=== PATIENT | female | born 2000 | race Caucasian/White ===

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

== ENCOUNTER 2019-02-17 22:01 | Emergency (ER) | payer OTHER ==
[2019-02-17] MEDS ORDERED: Ondansetron 4 MG/2 ML SDV IVPUSH ONE (23:03)
[2019-02-17] MEDS ORDERED: Ketorolac 30 MG/ML SDV IVPUSH ONE (23:03)
[2019-02-17] MEDS ORDERED: Sodium Chloride 0.9% 1,000 ML IV ONE (23:03)
--- NOTE | 2019-02-17 23:05 | EDM.PDOC ---
ED HPI GENERAL MEDICAL PROBLEM - General Chief Complaint: Abdominal Pain Stated Complaint: ABDOMINAL PAIN Time Seen by Provider: 02/17/19 23:04 Source of Information: Reports: Patient - History of Present Illness INITIAL COMMENTS - FREE TEXT/NARRATIVE: HISTORY AND PHYSICAL: History of present illness: [Presents with low abdominal pain subjective fever nausea vomiting diarrhea pain is 5 out of 10 nonradiating right left lower quadrant]-currently menstruating Patient pain resolved with Toradol Review of systems: As per history of present illness and below otherwise all systems reviewed and negative. Past medical history: As per history of present illness and as reviewed below otherwise noncontributory. Surgical history: As per history of present illness and as reviewed below otherwise noncontributory. Social history: No reported history of drug or alcohol abuse. Family history: As per history of present illness and as reviewed below otherwise noncontributory. Physical exam: HEENT: Atraumatic, normocephalic, pupils reactive, negative for conjunctival pallor or scleral icterus, mucous membranes moist, throat clear, neck supple, nontender, trachea midline. Lungs: Clear to auscultation, breath sounds equal bilaterally, chest nontender. Heart: S1S2, regular, negative for clicks, rubs, or JVD. Abdomen: Soft, nondistended, tender on deep palpationon the left lower quadrant no guarding or rebound. Negative for masses or hepatosplenomegaly. Negative for costovertebral tenderness. Pelvis: Stable nontender. Genitourinary: Deferred. Rectal: Deferred. Extremities: Atraumatic, negative for cords or calf pain. Neurovascular unremarkable. Neuro: Awake, alert, oriented. Cranial nerves II through XII unremarkable. Cerebellum unremarkable. Motor and sensory unremarkable throughout. Exam nonfocal. Diagnostics: [CBC CMP lipase UA hCG CT abdomen pelvis with contrast ] Therapeutics:Normalline Toradol Zofran Toradol Return if symptoms persist or worsen ] Impression: [Abdominal pain] Definitive disposition and diagnosis as appropriate pending reevaluation and review of above. abdomen Pain Score (Numeric/FACES): 7 - Related Data Allergies Allergy/AdvReac Type Severity Reaction Status Date / Time banana Allergy Mouth Sores Verified 02/17/19 22:55 Home Meds: Home Meds . [No Known Home Meds] 11/26/18 [History] Past Medical History - Past Health History Medical/Surgical History: Denies Medical/Surgical History Psychiatric History: Reports: Anxiety, Depression, PTSD Social & Family History - Family History Family Medical History: Noncontributory - Tobacco Use Smoking Status *Q: Current Every Day Smoker Years of Tobacco use: 1 Packs/Tins Daily: 0.5 - Caffeine Use Caffeine Use: Reports: Coffee, Energy Drinks, Soda - Recreational Drug Use Recreational Drug Use: Yes Recreational Drug Type: Reports: Marijuana/Hashish Recreational Drug Use Frequency: Weekly Recreational Drug Last Use: "4 days ago" ED ROS GENERAL - Review of Systems Review Of Systems: See Below ED EXAM, GENERAL - Physical Exam Exam: See Below Course - Vital Signs Last Recorded V/S: Last Vital Signs Temp 96.6 F 02/17/19 22:50 Pulse 88 02/17/19 22:50 Resp 18 02/17/19 22:50 BP 138/93 H 02/17/19 22:50 Pulse Ox 97 02/17/19 22:50 - Orders/Labs/Meds Labs: Laboratory Tests 02/17/19 02/17/19 02/17/19 Range/Units 23:03 23:03 23:16 WBC 12.97 H (4.0-11.0) K/uL RBC 5.14 (4.30-5.90) M/uL Hgb 13.1 (12.0-16.0) g/dL Hct 41.6 (36.0-46.0) % MCV 80.9 (80.0-98.0) fL MCH 25.5 L (27.0-32.0) pg MCHC 31.5 (31.0-37.0) g/dL RDW Std Deviation 43.6 (28.0-62.0) fl RDW Coeff of Kapil 15 (11.0-15.0) % Plt Count 409 H (150-400) K/uL MPV 10.30 (7.40-12.00) fL Add Manual Diff YES Neutrophils % (Manual) 62 (48.0-80.0) % Band Neutrophils % 1 % Lymphocytes % (Manual) 33 (16.0-40.0) % Monocytes % (Manual) 3 (0.0-15.0) % Basophils % (Manual) 1 (0.0-1.5) % Nucleated RBC % 0.0 /100WBC Absolute Seg Neuts 8.0 H (1.4-5.7) Band Neutrophils # 0.1 Lymphocytes # (Manual) 4.3 H (0.6-2.4) Monocytes # (Manual) 0.4 (0.0-0.8) Basophils # (Manual) 0.1 (0.0-0.1) Nucleated RBCs # 0 K/uL Sodium (136-145) mmol/L Potassium (3.5-5.1) mmol/L Chloride (98-107) mmol/L Carbon Dioxide (21.0-32.0) mmol/L BUN (7.0-18.0) mg/dL Creatinine (0.6-1.0) mg/dL Est Cr Clr Drug Dosing mL/min Estimated GFR (MDRD) ml/min Glucose (74-106) mg/dL Calcium (8.5-10.1) mg/dL Total Bilirubin (0.2-1.0) mg/dL AST (15-37) IU/L ALT (14-63) IU/L Alkaline Phosphatase (46-116) U/L Total Protein (6.4-8.2) g/dL Albumin (3.4-5.0) g/dL Globulin (2.6-4.0) g/dL Albumin/Globulin Ratio (0.9-1.6) Lipase (73-393) U/L Urine Color YELLOW Urine Appearance CLEAR Urine pH 6.0 (5.0-8.0) Ur Specific Valentines >= 1.030 (1.001-1.035) Urine Protein TRACE H (NEGATIVE) mg/dL Urine Glucose (UA) NEGATIVE (NEGATIVE) mg/dL Urine Ketones NEGATIVE (NEGATIVE) mg/dL Urine Occult Blood LARGE H (NEGATIVE) Urine Nitrite NEGATIVE (NEGATIVE) Urine Bilirubin NEGATIVE (NEGATIVE) Urine Urobilinogen 0.2 (<2.0) EU/dL Ur Leukocyte Esterase NEGATIVE (NEGATIVE) Urine RBC 31-35 (0-2/HPF) Urine WBC 1-3 (0-5/HPF) Ur Squamous Epith Cells FEW Urine Bacteria FEW (NEGATIVE) Urine Mucus LIGHT (NONE-MOD) Urine HCG, Qual NEGATIVE (NEGATIVE) 02/17/19 Range/Units 23:16 WBC (4.0-11.0) K/uL RBC (4.30-5.90) M/uL Hgb (12.0-16.0) g/dL Hct (36.0-46.0) % MCV (80.0-98.0) fL MCH (27.0-32.0) pg MCHC (31.0-37.0) g/dL RDW Std Deviation (28.0-62.0) fl RDW Coeff of Kapil (11.0-15.0) % Plt Count (150-400) K/uL MPV (7.40-12.00) fL Add Manual Diff Neutrophils % (Manual) (48.0-80.0) % Band Neutrophils % % Lymphocytes % (Manual) (16.0-40.0) % Monocytes % (Manual) (0.0-15.0) % Basophils % (Manual) (0.0-1.5) % Nucleated RBC % /100WBC Absolute Seg Neuts (1.4-5.7) Band Neutrophils # Lymphocytes # (Manual) (0.6-2.4) Monocytes # (Manual) (0.0-0.8) Basophils # (Manual) (0.0-0.1) Nucleated RBCs # K/uL Sodium 139 (136-145) mmol/L Potassium 3.7 (3.5-5.1) mmol/L Chloride 104 (98-107) mmol/L Carbon Dioxide 26.7 (21.0-32.0) mmol/L BUN 11 (7.0-18.0) mg/dL Creatinine 1.0 (0.6-1.0) mg/dL Est Cr Clr Drug Dosing 84.71 mL/min Estimated GFR (MDRD) > 60.0 ml/min Glucose 95 (74-106) mg/dL Calcium 9.4 (8.5-10.1) mg/dL Total Bilirubin 0.4 (0.2-1.0) mg/dL AST 31 (15-37) IU/L ALT 50 (14-63) IU/L Alkaline Phosphatase 76 (46-116) U/L Total Protein 8.1 (6.4-8.2) g/dL Albumin 3.7 (3.4-5.0) g/dL Globulin 4.4 H (2.6-4.0) g/dL Albumin/Globulin Ratio 0.8 L (0.9-1.6) Lipase 87 (73-393) U/L Urine Color Urine Appearance Urine pH (5.0-8.0) Ur Specific Valentines (1.001-1.035) Urine Protein (NEGATIVE) mg/dL Urine Glucose (UA) (NEGATIVE) mg/dL Urine Ketones (NEGATIVE) mg/dL Urine Occult Blood (NEGATIVE) Urine Nitrite (NEGATIVE) Urine Bilirubin (NEGATIVE) Urine Urobilinogen (<2.0) EU/dL Ur Leukocyte Esterase (NEGATIVE) Urine RBC (0-2/HPF) Urine WBC (0-5/HPF) Ur Squamous Epith Cells Urine Bacteria (NEGATIVE) Urine Mucus (NONE-MOD) Urine HCG, Qual (NEGATIVE) Meds: Medications Discontinued Medications Generic Name Dose Route Start Last Admin Trade Name Freq PRN Reason Stop Dose Admin Sodium Chloride 1,000 mls @ 999 mls/hr 02/17/19 23:03 02/17/19 23:19 Normal Saline IV 02/18/19 00:03 999 mls/hr STAT ONE Administration Iopamidol 100 ml 02/18/19 00:18 02/18/19 00:19 Isovue Multipack-370 (76%) IVPUSH 02/18/19 00:19 100 ml ONETIME STA Administration Ketorolac Tromethamine 30 mg 02/17/19 23:03 02/17/19 23:19 Toradol IVPUSH 02/17/19 23:04 30 mg ONETIME ONE Administration Ondansetron HCl 8 mg 02/17/19 23:03 02/17/19 23:20 Zofran IVPUSH 02/17/19 23:04 8 mg ONETIME ONE Administration Departure - Departure Time of Disposition: 01:14 Disposition: Home, Self-Care 01 Condition: Good Clinical Impression: Abdominal pain - Discharge Information Referrals: PCP,None [Primary Care Provider] - Forms: ED Department Discharge Additional Instructions: The following information is given to patients seen in the emergency department who are being discharged to home. This information is to outline your options for follow-up care. We provide all patients seen in our emergency department with a follow-up referral. The need for follow-up, as well as the timing and circumstances, are variable depending upon the specifics of your emergency department visit. If you don't have a primary care physician on staff, we will provide you with a referral. We always advise you to contact your personal physician following an emergency department visit to inform them of the circumstance of the visit and for follow-up with them and/or the need for any referrals to a consulting specialist. The emergency department will also refer you to a specialist when appropriate. This referral assures that you have the opportunity for follow-up care with a specialist. All of these measure are taken in an effort to provide you with optimal care, which includes your follow-up. Under all circumstances we always encourage you to contact your private physician who remains a resource for coordinating your care. When calling for follow-up care, please make the office aware that this follow-up is from your recent emergency room visit. If for any reason you are refused follow-up, please contact the [facility] emergency department at and asked to speak to the emergency department charge nurse.
[2019-02-17 23:43] LABS: CHLORIDE,CL 104 mmol/L (98-107); SODIUM,NA 139 mmol/L (136-145)
[2019-02-18] MEDS ORDERED: Iopamidol 755 MG/ML 500 ML Multipack Bottle IVPUSH STA (00:18)
--- NOTE | 2019-02-18 00:34 | CT ---
INDICATION: Painful urination with lower abdominal pain TECHNIQUE: CT abdomen and pelvis acquired with 100 cc Isovue 370 IV contrast. COMPARISON: None FINDINGS: Lower chest: Unremarkable. Liver: Unremarkable. Spleen: Unremarkable. Pancreas: Unremarkable. Gallbladder and bile ducts: Unremarkable. Adrenal glands: Unremarkable. Kidneys: Unremarkable. GI tract: Unremarkable. Appendix is normal. Vascular structures: Unremarkable. Lymph nodes: Unremarkable. Miscellaneous: Unremarkable. No free air or significant free fluid. Pelvic Organs: Unremarkable. Bones: Unremarkable for age. IMPRESSION: Unremarkable CT of the abdomen and pelvis. Please note that all CT scans at this facility use dose modulation, iterative reconstruction, and/or weight-based dosing when appropriate to reduce radiation dose to as low as reasonably achievable. Dictated by Mariely Meléndez MD @ Feb 18 2019 12:33AM Signed by Dr. Mariely Meléndez @ Feb 18 2019 12:33AM
== END 2019-02-18 01:33 | disposition home or self-care (01) ==
LOC: MW.ED 22:01
DX: R10.30 Lower abdominal pain, unspecified (principal); R11.2 Nausea with vomiting, unspecified; R19.7 Diarrhea, unspecified; F17.210 Nicotine dependence, cigarettes, uncomplicated; Z91.018 Allergy to other foods
CPT/HCPCS: 36415; 74177; 80053; 81001; 81025; 83690; 85025; 96361; 96374; 96375; 99284; J1885; J2405; J7040; Q9967

== ENCOUNTER 2019-03-22 17:35 | Emergency (ER) | payer OTHER ==
[2019-03-22] MEDS ORDERED: Bacitracin Oint 1 GM U/D Packet TOP ONE (17:39)
[2019-03-22] MEDS ORDERED: Diphtheria,Pertussis(Acell),Tetanus Vaccine 0.5 ML Syringe IM ONE (17:39)
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
[2019-03-22 18:24] LABS: ACETAMINOPHEN <2.0 ug/mL
[2019-03-22 18:32] LABS: CHLORIDE,CL 104 mmol/L (98-107); SODIUM,NA 140 mmol/L (136-145)
== END 2019-03-22 19:50 ==
LOC: MW.ED 17:35
DX: T43.222A Poisoning by selective serotonin reuptake inhibitors, intentional self-harm, initial encounter (principal); S60.812A Abrasion of left wrist, initial encounter; S60.811A Abrasion of right wrist, initial encounter; F32.9 Major depressive disorder, single episode, unspecified; F43.10 Post-traumatic stress disorder, unspecified; Z23 Encounter for immunization; Z91.018 Allergy to other foods; Z79.899 Other long term (current) drug therapy; X78.9XXA Intentional self-harm by unspecified sharp object, initial encounter
CPT/HCPCS: 36415; 80053; 84443; 85025; 90471; 90715; 93005; 99285; G0480

== ENCOUNTER 2019-05-10 12:42 | Emergency (ER) | payer OTHER ==
--- NOTE | 2019-05-10 13:08 | EDM.PDOC ---
ED HPI GENERAL MEDICAL PROBLEM - General Chief Complaint: Genitourinary Problem Stated Complaint: STD Time Seen by Provider: 05/10/19 13:08 Source of Information: Reports: Patient History Limitations: Reports: No Limitations - History of Present Illness INITIAL COMMENTS - FREE TEXT/NARRATIVE: HISTORY AND PHYSICAL: History of present illness: Patient is a 18-year-old female presents to the ED with complaint of vaginal discharge and pain. She states that she had intercourse yesterday and has a small tear this bleeding since then. She states it is a light amount of spotting but she is not needing to use any pads or tampons. She does report some yellow vaginal discharge but denies dysuria, hematuria, abdominal pain, vomiting, diarrhea. Review of systems: As per history of present illness and below otherwise all systems reviewed and negative. Past medical history: As per history of present illness and as reviewed below otherwise noncontributory. Surgical history: As per history of present illness and as reviewed below otherwise noncontributory. Social history: No reported history of drug or alcohol abuse. Family history: As per history of present illness and as reviewed below otherwise noncontributory. Physical exam: General: Patient sitting comfortably in no acute distress and nontoxic appearing HEENT: Atraumatic, normocephalic, pupils reactive, negative for conjunctival pallor or scleral icterus, mucous membranes moist, throat clear, neck supple, nontender, trachea midline. No meningeal signs. Lungs: Clear to auscultation, breath sounds equal bilaterally, chest nontender. Heart: S1S2, regular, negative for clicks, rubs, or overt murmur. Abdomen: Soft, nondistended, nontender. Negative for masses or hepatosplenomegaly. Negative for costovertebral tenderness. No rigidity, rebound , guarding. Pelvis: Stable nontender. Genitourinary: There is a superficial 1.5 cm laceration entrance of the vagina. Moderate yellowish discharge noted. Rectal: Deferred. Extremities: Atraumatic, negative for cords or calf pain. Neurovascular unremarkable. Neuro: Awake, alert, oriented. Cranial nerves II through XII unremarkable. Cerebellum unremarkable. Motor and sensory unremarkable throughout. Exam nonfocal. Notes: Diagnostics: UA, gonorrhea/chlamydia, BV/trich/cand Therapeutics: 60 mg Toradol IM 250 mg Rocephin IM 1g azithromycin PO Prescriptions: Impression: Vaginal discharge, vaginal injury, UTI Plan: Take antibiotic as instructed. Tylenol or Motrin as needed for discomfort Follow up with fuse assembler Return to ED as needed as discussed Definitive disposition and diagnosis as appropriate pending reevaluation and review of above. Vaginal Pain Score (Numeric/FACES): 7 - Related Data Allergies Allergy/AdvReac Type Severity Reaction Status Date / Time banana Allergy Mouth Sores Verified 05/10/19 13:00 Home Meds: Home Meds Amitriptyline [Elavil] 75 mg PO BEDTIME 05/10/19 [History] Nitrofurantoin Monohyd/M-Cryst [Macrobid 100 mg Capsule] 100 mg PO BID 7 Days # 14 capsule 05/10/19 [Rx] PARoxetine HCl [Paxil] 30 mg PO BID 05/10/19 [History] Prazosin [Minpress] 2 mg PO BEDTIME 05/10/19 [History] busPIRone HCl [busPIRone] 15 mg PO BID 05/10/19 [History] Past Medical History - Past Health History Medical/Surgical History: Denies Medical/Surgical History Psychiatric History: Reports: Anxiety, Depression, PTSD Social & Family History - Family History Family Medical History: Noncontributory - Caffeine Use Caffeine Use: Reports: Coffee, Energy Drinks, Soda ED ROS GENERAL - Review of Systems Review Of Systems: ROS reveals no pertinent complaints other than HPI. ED EXAM, RENAL/ - Physical Exam Exam: See Below (See dictation) Course - Vital Signs Last Recorded V/S: Last Vital Signs Temp 96.5 F 05/10/19 13:03 Pulse 101 H 05/10/19 13:03 Resp 18 05/10/19 13:03 BP 120/70 05/10/19 13:03 Pulse Ox 95 05/10/19 13:03 - Orders/Labs/Meds Orders: Active Orders 24 hr Category Date Time Status CHLAMYDIA AND GONORRHEA BY TMA Stat Lab 05/10/19 13:18 Received CULTURE URINE [RM] Stat Lab 05/10/19 15:05 Received Labs: Laboratory Tests 05/10/19 05/10/19 Range/Units 13:18 15:05 Urine Color YELLOW Urine Appearance SLT CLOUDY Urine pH 6.0 (5.0-8.0) Ur Specific Eden >= 1.030 (1.001-1.035) Urine Protein NEGATIVE (NEGATIVE) mg/dL Urine Glucose (UA) NEGATIVE (NEGATIVE) mg/dL Urine Ketones NEGATIVE (NEGATIVE) mg/dL Urine Occult Blood SMALL H (NEGATIVE) Urine Nitrite NEGATIVE (NEGATIVE) Urine Bilirubin NEGATIVE (NEGATIVE) Urine Urobilinogen 0.2 (<2.0) EU/dL Ur Leukocyte Esterase MODERATE H (NEGATIVE) Urine RBC 1-3 (0-2/HPF) Urine WBC 15-20 (0-5/HPF) Ur Epithelial Cells FEW (NONE-FEW) Amorphous Sediment LIGHT (NEGATIVE) Urine Bacteria 2+ H (NEGATIVE) Urine Mucus LIGHT (NONE-MOD) Desiree species DNA NEGATIVE (NEGATIVE) Gardnerella DNA Probe NEGATIVE (NEGATIVE) Trichomonas DNA Probe NEGATIVE (NEGATIVE) Meds: Medications Discontinued Medications Generic Name Dose Route Start Last Admin Trade Name Freq PRN Reason Stop Dose Admin Azithromycin 1,000 mg 05/10/19 13:21 05/10/19 13:55 Zithromax PO 05/10/19 13:22 1,000 mg NOW STA Administration Ceftriaxone Sodium 250 mg/ 1 mls @ 1 mls/sec 05/10/19 13:21 05/10/19 13:56 Lidocaine HCl IM 05/10/19 13:22 1 mls/sec ONETIME ONE Administration Ketorolac Tromethamine 60 mg 05/10/19 13:24 05/10/19 13:57 Toradol IM 05/10/19 13:25 60 mg ONETIME ONE Administration Departure - Departure Time of Disposition: 15:33 Disposition: Home, Self-Care 01 Condition: Good Clinical Impression: Vaginal discharge, Vaginal injury, Urinary tract infection - Discharge Information Prescriptions: Nitrofurantoin Monohyd/M-Cryst [Macrobid 100 mg Capsule] 100 mg PO BID 7 Days # 14 capsule Referrals: PCP,Unknown [Primary Care Provider] - Forms: ED Department Discharge Additional Instructions: The following information is given to patients seen in the emergency department who are being discharged to home. This information is to outline your options for follow-up care. We provide all patients seen in our emergency department with a follow-up referral. The need for follow-up, as well as the timing and circumstances, are variable depending upon the specifics of your emergency department visit. If you don't have a primary care physician on staff, we will provide you with a referral. We always advise you to contact your personal physician following an emergency department visit to inform them of the circumstance of the visit and for follow-up with them and/or the need for any referrals to a consulting specialist. The emergency department will also refer you to a specialist when appropriate. This referral assures that you have the opportunity for follow-up care with a specialist. All of these measure are taken in an effort to provide you with optimal care, which includes your follow-up. Under all circumstances we always encourage you to contact your private physician who remains a resource for coordinating your care. When calling for follow-up care, please make the office aware that this follow-up is from your recent emergency room visit. If for any reason you are refused follow-up, please contact the [facility] Emergency Department at and asked to speak to the emergency department charge nurse. [facility] [address] [place] [id number] [facility] [address] [place] [id number] Take antibiotic as instructed .Tylenol or Motrin as needed for discomfort Follow up with fuse assembler Return to ED as needed as discussed - My Orders Last 24 Hours: My Active Orders 05/10/19 13:18 CHLAMYDIA AND GONORRHEA BY TMA Stat 05/10/19 15:05 CULTURE URINE [RM] Stat - Assessment/Plan Last 24 Hours: My Active Orders 05/10/19 13:18 CHLAMYDIA AND GONORRHEA BY TMA Stat 05/10/19 15:05 CULTURE URINE [RM] Stat
[2019-05-10] MEDS ORDERED: Azithromycin 250 MG Tab PO STA (13:21)
[2019-05-10] MEDS ORDERED: cefTRIAXone 250 MG in Lidocaine 1% 1 ML IM ONE (13:21)
[2019-05-10] MEDS ORDERED: Ketorolac 60 MG/2 ML SDV IM ONE (13:24)
== END 2019-05-10 15:44 | disposition home or self-care (01) ==
LOC: MW.ED 12:42
DX: S31.41XA Laceration without foreign body of vagina and vulva, initial encounter (principal); N39.0 Urinary tract infection, site not specified; N89.8 Other specified noninflammatory disorders of vagina; F41.9 Anxiety disorder, unspecified; F32.9 Major depressive disorder, single episode, unspecified; Z91.018 Allergy to other foods; Z79.899 Other long term (current) drug therapy; X58.XXXA Exposure to other specified factors, initial encounter
CPT/HCPCS: 81001; 87086; 87480; 87491; 87510; 87591; 87660; 96372; 99283; A9270; J0696; J1885; J2001

== ENCOUNTER 2020-07-18 18:08 | Emergency (ER) | payer SELFPAY ==
[2020-07-18] MEDS ORDERED: Ondansetron 4 MG/2 ML SDV ONE (18:47)
[2020-07-18] MEDS ORDERED: Morphine 4 MG/ML Syringe ONE (18:47)
[2020-07-18] MEDS ORDERED: Morphine 4 MG/ML Syringe IVPUSH ONE (18:49)
[2020-07-18] MEDS ORDERED: Ondansetron 4 MG/2 ML SDV IVPUSH ONE (18:49)
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
[2020-07-18] MEDS ORDERED: fentaNYL 100 MCG/2 ML SDV ONE (18:58)
[2020-07-18] MEDS ORDERED: fentaNYL 50 MCG/ML SDV IVPUSH ONE (19:00)
[2020-07-18] MEDS ORDERED: Sodium Chloride 0.9% 2.5 ML Syringe FLUSH PRN (19:09)
[2020-07-18] MEDS ORDERED: Sodium Chloride 0.9% 10 ML Syringe FLUSH PRN (19:09)
[2020-07-18] MEDS ORDERED: ceFAZolin 1 GM in Premix Bag 1 BAG IV ONE ×2 (19:09→19:20)
[2020-07-18] MEDS ORDERED: Sodium Chloride 0.9% 10 ML SDV IV PRN (19:09)
[2020-07-18] MEDS ORDERED: Sodium Chloride 0.9% 1,000 ML IV SCH (19:15)
[2020-07-18 19:33] LABS: BLOOD UREA NITROGEN,BUN 17 mg/dL (7.0-18.0); CARBON DIOXIDE,CO2 26.5 mmol/L (21.0-32.0); CHLORIDE,CL 103 mmol/L (98-107); GLUCOSE RANDOM 127 mg/dL (74-106); LIPASE 88 U/L (73-393); POTASSIUM,K 3.6 mmol/L (3.5-5.1); SODIUM,NA 139 mmol/L (136-145)
--- NOTE | 2020-07-18 20:14 | CR ---
Indication: Postreduction Technique: Right ankle 2 views. Comparison: This evening Findings: Mild improved alignment of the distal fibular fracture and base of the medial malleolar fracture. Splint. Impression: Mild improved alignment status post splint placement. Dictated by Edgardo Virk MD @ Jul 18 2020 8:13PM Signed by Dr. Edgardo Virk @ Jul 18 2020 8:13PM
[2020-07-18] MEDS ORDERED: Diphtheria,Pertussis(Acell),Tetanus Vaccine 0.5 ML Syringe IM ONE (20:28)
[2020-07-18] MEDS ORDERED: Iopamidol 755 Mg/ML 100 ML Bottle IVPUSH ONE (20:31)
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
[2020-07-18] MEDS ORDERED: HYDROmorphone 1 MG/ML Syringe IVPUSH ONE ×2 (20:48→21:50)
[2020-07-18] MEDS ORDERED: HYDROmorphone 1 MG/ML Syringe ONE (20:50)
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
== END 2020-07-18 21:55 | disposition other institution (70) ==
LOC: MW.ED 18:08
DX: S82.841B Displaced bimalleolar fracture of right lower leg, initial encounter for open fracture type I or II (principal); S82.831A Other fracture of upper and lower end of right fibula, initial encounter for closed fracture; S82.851A Displaced trimalleolar fracture of right lower leg, initial encounter for closed fracture; S00.83XA Contusion of other part of head, initial encounter; F17.210 Nicotine dependence, cigarettes, uncomplicated; Z23 Encounter for immunization; Z91.018 Allergy to other foods; V89.2XXA Person injured in unspecified motor-vehicle accident, traffic, initial encounter
CPT/HCPCS: 27788; 36415; 70450; 71260; 72125; 73610; 74177; 80053; 80307; 83690; 85025; 85730; 86850; 86900; 86901; 90471; 90715; 96365; 96375; 96376; 99285; J0690; J1170; J2001; J2270; J2405; J3010; J7030; Q9967

== ENCOUNTER 2023-03-29 17:39 | Emergency (ER) | payer SELFPAY ==
[2023-03-29] MEDS ORDERED: Acetaminophen 500 MG Tab PO STA (19:08)
== END 2023-03-29 20:22 | disposition left against medical advice (07) ==
LOC: MW.ED 17:39
DX: S09.90XA Unspecified injury of head, initial encounter (principal); M25.521 Pain in right elbow; M25.511 Pain in right shoulder; Z91.018 Allergy to other foods; Y04.0XXA Assault by unarmed brawl or fight, initial encounter
CPT/HCPCS: 70450; 73030; 73080; 99284; A9270

== ENCOUNTER 2023-04-14 17:34 | Emergency (ER) | payer SELFPAY ==
[2023-04-14] MEDS ORDERED: Sodium Chloride 0.9% 10 ML Syringe FLUSH PRN (18:06)
[2023-04-14] MEDS ORDERED: Sodium Chloride 0.9% 2.5 ML Syringe FLUSH PRN (18:06)
[2023-04-14] MEDS ORDERED: Sodium Chloride 0.9% 1,000 ML IV STA ×2 (18:07→19:16)
[2023-04-14] MEDS ORDERED: Promethazine 25 MG/ML SDV IM STA (18:22)
[2023-04-14 18:32] LABS: MAGNESIUM 1.9 mg/dL (1.8-2.4)
[2023-04-14 18:35] LABS: ALBUMIN 3.9 g/dL (3.4-5.0); BILIRUBIN TOTAL 0.6 mg/dL (0.2-1.0); CALCIUM 9.6 mg/dL (8.5-10.1); CARBON DIOXIDE,CO2 21.7 mmol/L (21.0-32.0); CREATININE 0.8 mg/dL (0.6-1.0); EST CRCL DRUG DOSING (CG) 102.39 mL/min; POTASSIUM,K 3.3 mmol/L (3.5-5.1); PROTEIN TOTAL,TP 7.7 g/dL (6.4-8.2)
[2023-04-14 18:53] LABS: BASOPHILS PERCENT AUTO 0.1 % (0.0-1.5); EOSINOPHILS PERCENT AUTO 0.2 % (0.0-7.0); HEMATOCRIT 39.7 % (36.0-46.0); HEMOGLOBIN 13.5 g/dL (12.0-16.0); LYMPHOCYTES PERCENT AUTO 12.1 % (16.0-40.0); MEAN CORPUSCULAR HEMOGLOBIN 28.1 pg (27.0-32.0); MEAN CORPUSCULAR VOLUME 82.7 fL (80.0-98.0); MONOCYTES ABSOLUTE AUTO 1.1 K/uL (0.0-0.8); MONOCYTES PERCENT AUTO 6.9 % (0.0-15.0); NEUTROPHILS ABSOLUTE AUTO 13.1 K/uL (1.4-5.7); NEUTROPHILS PERCENT AUTO 80.7 % (48.0-80.0); NRBC ABSOLUTE 0 K/uL; PLATELET COUNT,PLT 363 K/uL (150-400); WHITE BLOOD CELL COUNT,WBC 16.24 K/uL (4.0-11.0)
[2023-04-14] MEDS ORDERED: Potassium Chloride 20 MEQ Tab.ER PO STA (18:53)
[2023-04-14] MEDS ORDERED: droPERidol 5 MG/2 ML SDV IVPUSH STA (19:15)
[2023-04-14] MEDS ORDERED: Iopamidol 755 MG/ML 500 ML Multipack Bottle IVPUSH ONE (19:30)
[2023-04-14] MEDS ORDERED: LORazepam 2 MG/ML SDV IVPUSH STA (19:57)
== END 2023-04-14 21:46 | disposition left against medical advice (07) ==
LOC: MW.ED 17:34
DX: R10.84 Generalized abdominal pain (principal); R11.2 Nausea with vomiting, unspecified; Z91.018 Allergy to other foods
CPT/HCPCS: 36415; 74177; 80053; 83690; 83735; 84703; 85025; 93005; 96361; 96372; 96374; 99284; A9270; J1790; J2550; J3490; J7030; Q9967; 93010